=== PATIENT | female | born 1970 | race Caucasian/White ===

== ENCOUNTER 2024-11-03 14:11 | Emergency (ER) | payer OTHER | END 2024-11-03 15:22 | disposition home or self-care (01) | LOC: CSHERS 14:11 | DX: R20.2 Paresthesia of skin (principal); I10 Essential (primary) hypertension; E11.9 Type 2 diabetes mellitus without complications; Z90.49 Acquired absence of other specified parts of digestive tract; V09.9XXA Pedestrian injured in unspecified transport accident, initial encounter; Y92.481 Parking lot as the place of occurrence of the external cause | CPT/HCPCS: 99283 ==